=== PATIENT | female | born 1990 | race Caucasian/White ===

== ENCOUNTER 2016-11-11 17:04 | Emergency (ER) | payer OTHER ==
[~2016-11-11] VITALS: Ht 170.2 cm; Wt 90.7 kg
[2016-11-11] MEDS ORDERED: TRAMADOL 50 MG50 MG PO (18:08)
[2016-11-11] MEDS ORDERED: NAPROSYN500 MG PO (18:08)
[2016-11-11 18:58] VITALS: BP 120/88
== END 2016-11-11 19:56 | disposition home or self-care (01) ==
LOC: ER 17:04
DX: S92.002A Unspecified fracture of left calcaneus, initial encounter for closed fracture (principal); Z98.890 Other specified postprocedural states; Z88.8 Allergy status to other drugs, medicaments and biological substances; W18.31XA Fall on same level due to stepping on an object, initial encounter; Y93.89 Activity, other specified; Y92.89 Other specified places as the place of occurrence of the external cause; Y99.8 Other external cause status

== ENCOUNTER 2016-11-18 22:59 | Inpatient (IN) | payer OTHER ==
[~2016-11-18] VITALS: Ht 170.2 cm; Wt 127.0 kg
--- NOTE | ~2016-11-18 | S ---
[facility] [place] [address] SURGICAL PATH RPT PROCEDURE Name: KIRA FONTANA Desirae Room #: 442-P ADM IN M.R.#: [id number] Admission: 11/19/16 Date of : 88 Discharge: Report #: [id number] Path Case #: [id number] PATHOLOGY REPORT COLLECTION DATE: 11/19/2016 RECEIVED DATE: 11/20/2016 SUBMITTING PHYS: Dr. Juan Uribe OTHER PHYS: Dr. Ivan Casey SPECIMEN(S) RECEIVED: A.Appendix * * * * * * * * * * * * FINAL DIAGNOSIS: Appendix, "appendix", appendectomy: - Acute suppurative appendicitis with acute inflammation extending into the periappendiceal fat with microabscess formation. (SHA:csd; d/t: 11/22/2016) PATHOLOGIST: Maximo Woodruff M.D. REPORT ELECTRONICALLY SIGNED BY: Maximo Woodruff M.D. DATE/TIME: 11/22/2016 12:24 * * * * * * * * * * * * GROSS PATHOLOGY: Received in formalin labeled "Kira Fontana, appendix," is an appendix measuring 6.1 cm in length and 1.1 cm in diameter with a moderate amount of attached mesoappendix. The serosal surface is dusky multani-teran brown in appearance. Sectioning reveals a patent lumen filled with blood coagulum admixed with fecal material. The specimen is submitted representatively as follows: A1 proximal margin, distalmost bisected tip and section just proximal to bisected tip A2 additional cross sections of appendix. (CAA; 11/21/2016) CLINICAL HISTORY: Appendicitis INITIAL CPT CODE(S): A; 09507 [facility] [address], [place] [address] [facility] [address] [place] [address] SURGICAL PATH RPT PROCEDURE Name: KIRA FONTANA Room #: 442-P ADM IN M.R.#: [id number] Admission: 11/19/16 Date of : 88 Discharge: Report #: [id number] Path Case #: [id number] Technical [facility] performed by [facility] at [address] [place] [address], [facility] [address] [address]. [facility] [address] [place] [address] PHONE: [phone] DIRECTOR: Elbert Harper M.D. * * * END OF REPORT * * *
--- NOTE | ~2016-11-18 | HC ---
[facility] [place] [address] CONSULTATION Name: ADDIKIERRA Room #: 442-P ADM IN M.R.#: [id number] Admission: 11/19/16 Attend Phys: Zane Schulz Discharge: Date of : 88 Report #: [id number] THIS REPORT FOR: //name// CC: [facility] physician/PCP Jacinto Uribe DATE OF SERVICE: 11/19/2016 REFERRING PROVIDER: Jacinto Love MD REASON FOR CONSULT: Abdominal pain. HISTORY OF PRESENT ILLNESS: The patient is a 26-year-old morbidly obese female who presented complaining of right lower quadrant abdominal pain of 24 hours duration. The patient rates the pain as 10/10 and at first she thought it was heartburn that started in the right upper quadrant, but now it has migrated to the right lower quadrant and she has received no relief whatsoever. Workup in the emergency room was undertaken with laboratories and a CT scan of the abdomen and pelvis. The patient's labs showed a marked leukocytosis with a white blood cell count of 16.7 thousand with a bandemia of 20% and her CT scan of the abdomen and pelvis showed a distended appendix with adjacent inflammatory stranding and a small appendicolith, but no gross evidence of perforation. As such, I am being asked to evaluate for definitive surgical management in the form of an appendectomy. PAST MEDICAL HISTORY: Morbid obesity. PAST SURGICAL HISTORY: C-sections times 8. HOME MEDICATIONS: Naproxen and Tramadol. ALLERGIES: NYQUIL and DOXYLAMINE. FAMILY HISTORY: Reviewed and noncontributory. SOCIAL HISTORY: The patient lives with her spouse, no utilization of tobacco, alcohol or illicit drugs. REVIEW OF SYSTEMS: GENERAL: The patient denies nocturnal fevers or chills. HEENT: No change in vision, change in hearing. NECK: No swelling or difficulty swallowing. HEART: No chest pain or palpitations. LUNGS: No cough or shortness of breath. ABDOMEN: Abdominal pain, nausea and vomiting. [facility] [address] [place] [address] CONSULTATION Name: KIERRA FONTANA Room #: 442-P [facility] IN ..#: [id number] Admission: 11/19/16 Attend Phys: Zane Schulz Discharge: Date of : 88 Report #: [id number] GENITOURINARY: No dysuria or hematuria. ENDOCRINE: No polyuria, polydipsia. HEMATOLOGIC: No history of bleeding or easy bruising. EXTREMITIES: No history of weakness or limited range of motion. NEUROLOGIC: No history of syncope or near syncopal episodes. SKIN AND INTEGUMENT: No history of abnormal lesions or moles. PSYCHIATRIC: No history of anxiety or depression. PHYSICAL EXAMINATION: VITAL SIGNS: Temperature 36.7, pulse 101, respirations 18, blood pressure 127/95. Her BMI is 41.7. GENERAL: Alert, in mild distress. HEENT: Normocephalic, atraumatic. Pupils equal, round, reactive to light. NECK: Supple, without lymphadenopathy. Trachea midline. HEART: Tachycardic, but regular rhythm. LUNGS: Clear to auscultation bilaterally. ABDOMEN: Obese, soft, nondistended. She is tender mainly in the right lower quadrant with mild guarding, but no rebound. She has positive psoas and positive Rovsing's signs. GENITOURINARY: Normal external female genitalia. EXTREMITIES: No clubbing, cyanosis or edema. NEUROLOGIC: Cranial nerves 2-12 are grossly intact. PSYCHIATRIC: Normal mood and affect. SKIN AND INTEGUMENT: No abnormal lesions or moles. LABORATORY AND X-RAY DATA: CBC shows white blood cell count 16.7 thousand, hemoglobin 14.2, platelets 314,000. She has 20% bands. Creatinine is slightly elevated at 1.5. CT scan of the abdomen and pelvis showed a dilated appendix with periappendiceal stranding concerning for acute appendicitis. Lactic acid 1.8. Urine is negative. Urinalysis negative. ASSESSMENT AND PLAN: A 26-year-old morbidly obese female with what appears to be an acute appendicitis. The patient has been kept n.p.o., given appropriate IV antibiotics and IV fluid resuscitation for her acute kidney injury and we will proceed to the operating room at the first opportunity for a laparoscopic possible open appendectomy. Risks, benefits and alternatives of that procedure have been discussed with the patient in detail and she agrees to proceed as outlined. I sincerely appreciate this consult. I will follow closely and leave any further recommendations in the patient's chart as appropriate. <ELECTRONICALLY SIGNED> By: Juan Uribe MD, FACS 11/21/16 1700 1306 27 Juan Uribe MD, FACS /nt
--- NOTE | ~2016-11-18 | H ---
[facility] [place] [address] HISTORY AND PHYSICAL Name: SÁNCHEZ FONTANALEIDY Merrill Room #: 442-P [facility] IN M.R.#: [id number] Admission: 11/19/16 Attend Phys: Zane Schulz Discharge: 11/22/16 Date of : 88 Report #: [id number] THIS REPORT FOR: //name// CC: [facility] physician/PCP Jacinto Uribe ATTENDING PHYSICIAN: Dr. Love. PRIMARY CARE PHYSICIAN: None. CHIEF COMPLAINT: Right-sided abdominal pain. HISTORY OF PRESENT ILLNESS: The patient is a 26-year-old obese female who presented to the ER complaining of right-sided abdominal pain that started yesterday morning. The pain was sharp and constant. She rated her pain 10/10. Her pain did start in her right upper quadrant, but she feels her pain radiating down to her right lower quadrant. The pain significantly got worse around 1630 yesterday evening and she tried some heartburn medication, which did not help at all. She did have a normal bowel movement yesterday. She denies any associated nausea or vomiting. She denies any fevers or chills. In the ER, she was felt to have appendicitis and has been admitted for further evaluation. She currently rates her pain 7/10 and is again requesting further pain medication. PAST MEDICAL HISTORY: None. PAST SURGICAL HISTORY: . ALLERGIES: NYQUIL and DOXYLAMINE. HOME MEDICATIONS: The patient has recently been started on naproxen as well as tramadol for a recent cracked foot and sprained ankle. Normally, she does not take any prescription meds. SOCIAL HISTORY: The patient lives with her spouse. She denies any history of tobacco or alcohol use. FAMILY HISTORY: Noncontributory to this illness. REVIEW OF SYSTEMS: The patient has recently experienced left cracked foot and right ankle sprain and was seen in our ER for this. She is supposed to be using crutches, but she has not been. All other 12-point review of systems was reviewed with the patient, otherwise negative unless stated in the HPI. PHYSICAL EXAMINATION: GENERAL: The patient is an alert, obese female in no acute distress. VITAL SIGNS: Temperature is 36.7, heart rate 101, respirations 18, blood [address] [address] HISTORY AND PHYSICAL Name: KIERRA FONTANA Room #: 442-[facility] IN ..#: [id number] Admission: 11/19/16 Attend Phys: Zane Schulz Discharge: 11/22/16 Date of : 88 Report #: [id number] pressure is 127/95, oxygen 99% on room air. HEENT: PERRLA. Sclerae is nonicteric. Oral mucosa is pink and moist. NECK: Supple, no JVD noted. CARDIAC: Normal S1, S2. No murmurs, rubs or gallops. She is tachycardic. RESPIRATORY: Breath sounds are clear bilaterally. No wheezing or rhonchi. Breathing is nonlabored. ABDOMEN: Soft, round, and tender throughout, but worse in the right upper and lower quadrants. Bowel sounds are hypoactive. VASCULAR: No edema noted. Pedal pulses are 2+. NEUROLOGIC: The patient is alert and oriented times 3. Speech is clear. She is moving all extremities equally. No focal neuro deficits noted. PSYCHIATRIC: The patient is calm and cooperative. LABORATORY DATA AND DIAGNOSTICS: WBC is 16.7, hemoglobin 14.2 with bands of 20% and platelets are 314. UA showed negative for leukocyte esterase and wbc's. CT of the abdomen and pelvis shows acute appendicitis and fatty infiltration of the liver and the gallbladder is contracted and packed with calculi. ASSESSMENT AND PLAN: 1. Sepsis due to Acute appendicitis. The patient does have associated leukocytosis and tachycardia and does meet sepsis parameters. We will continue with IV fluids and Zosyn and follow labs. Surgery is consulted. We will keep her n.p.o., continue with pain control and antiemetics. 2. Acute kidney injury. Baseline creatinine is unknown, but she denies any prior history of kidney problems. We will continue with hydration and follow labs. 3. Cholelithiasis. We will have Surgery evaluate this when evaluating her for appendicitis. 4. Deep venous thrombosis prophylaxis, place sequential compression devices. We will continue to follow the patient closely throughout the hospitalization and make changes based on clinical status. <ELECTRONICALLY SIGNED> By: NENA Storm 11/23/16 0729 0819 1145 NENA Storm /nt
--- NOTE | ~2016-11-18 | O ---
[facility] [place] [address] OPERATIVE REPORT Name: ADDIKIERRA J Room #: 442-P ADM IN M.R.#: [id number] Admission: 11/19/16 Attend Phys: Jacinto Love MD Discharge: Date of : 88 Report #: [id number] THIS REPORT FOR: //name// CC: [facility] physician/PCP Jacinto Uribe DATE OF SERVICE: 11/19/2016 PREOPERATIVE DIAGNOSIS: Acute appendicitis. POSTOPERATIVE DIAGNOSIS: Acute perforated appendicitis. PROCEDURE PERFORMED: Laparoscopic appendectomy with intra-abdominal drain placement. SURGEON: Juan Uribe M.D. ECD: None. ANESTHESIA: General endotracheal anesthesia. ESTIMATED BLOOD LOSS: Minimal (less than 10 mL). COMPLICATIONS: None appreciated. SPECIMENS: None. INDICATIONS: The patient is a 26-year-old morbidly obese female who presented with a 24-hour history of right lower quadrant abdominal pain, nausea and vomiting. The patient's workup showed a leukocytosis with a dilated, inflamed appendix with periappendiceal stranding, concerning for acute appendicitis. No evidence of perforation was seen on CT scan, however, but no IV or oral contrast was utilized. Nonetheless, with the clinical symptoms, coupled with the CT findings, indication was for laparoscopic appendectomy today. Intraoperative findings of gross purulence widespread throughout the mid abdomen and pelvis were seen with obvious perforation approximately 2 cm from the base of the appendix, with fecal contamination intra-abdominally. DESCRIPTION OF PROCEDURE: After explaining the risks, benefits and alternatives of the procedure with the patient in detail in the preoperative holding area and obtaining written consent, the patient was brought to the operating room and placed supine on the operating room table. After conducting a thorough timeout procedure, verifying correct patient and procedure, the patient was given general endotracheal anesthesia. Once adequate anesthesia was obtained, her SCDs were hooked up to the pneumatic compression device. She was already on an [facility] [address] [place] [address] OPERATIVE REPORT Name: ADDIKIERRA Room #: 442-P [facility] IN [facility]#: [id number] Admission: 11/19/16 Attend Phys: Jacinto Love MD Discharge: Date of : 88 Report #: [id number] inpatient regimen of IV antibiotic therapy, which is all in line with the SCIP protocol. The patient's abdomen was now prepped and draped in the standard surgical sterile fashion. A 5 mL of 0.5% Marcaine with epinephrine were used to anesthetize the skin in the infraumbilical location. A #15 bladed scalpel was used to create a 1-cm transverse skin incision at this location. A 12-mm Visiport was placed over 0-degree 5-mm laparoscope and was introduced through this incision site. Once intra-abdominal placement was verified visually, the obturator for the trocar and laparoscope were both removed and the abdomen was insufflated to 15 mmHg using carbon dioxide gas. I now proceeded to place two 5-mm working trocars in the lower abdomen. The first was placed in the suprapubic location and second in the left lower quadrant. Both additional 5-mm ports were placed under direct vision. After anesthetizing the skin at each location with 5 mL of 0.5% Marcaine with epinephrine, I had created small skin nicks using #15 bladed scalpel. Evaluation of the lower abdomen now showed gross purulence widespread throughout the mid to lower abdomen. A suction route cdl driver device was used to suction out all gross purulence encountered at this juncture. Special attention was taken in the posterior cul-de-sac low in the pelvis. I now proceeded to place the patient in Trendelenburg position with the right side elevated and was able to easily identify the inflamed appendix with a hole approximately 2 cm distal to its takeoff from the cecum. The base of the appendix appeared healthy, uninflamed and un-indurated. I now proceeded to make a window in the mesoappendix near the base using a [place] dissector. Laparoscope was removed, changed to left lower quadrant trocar and the Rentz 45-mm stapler with a blue load was passed through the 12-mm trocar and one blade of the stapler was passed through the window in the mesoappendix. It was clamped and fired, stapling the appendix at its healthy base. The stapler was removed and the Harmonic scalpel was used to transect the mesoappendix for hemostasis. The EndoCatch bag was placed in the infraumbilical trocar and the specimen was placed within it under direct vision. The pursestring suture was drawn and specimen was removed from the abdomen under direct vision. I now placed the infraumbilical fascial closing suture using 0 PDS suture on a Josh-Jalil needle under direct vision. This was not tied down at this juncture, but was tagged with a hemostat and the trocar was replaced under direct vision. Laparoscope was placed back to the infraumbilical trocar and the staple line was evaluated. There was complete hemostasis, with no bleeding whatsoever. I proceeded to suction out all remaining fluid found. I then irrigated the abdomen with 3 liters of normal saline focusing in the mid to lower abdomen as well as evaluating the right upper and right lower quadrants, which showed no fluid collections in those regions. I then suctioned the irrigant out, which went clear at the end of the procedure. I then elected to put a 19-Kinyarwanda round Kevin-Peña drain in the lower pelvis. This was placed in the abdomen through the left lower quadrant trocar and was brought out through the suprapubic trocar site. This was secured to the skin using 2-0 Nylon in standard fashion. This was placed low in the cul-de-sac to run up the right pericolic gutter. One final evaluation of the intra-abdominal domain showed no further evidence of gross purulence and the staple line was seated [address] [address] OPERATIVE REPORT Name: KIERRA FONTANA Room #: 442-P ADM IN M.R.#: [id number] Admission: 11/19/16 Attend Phys: Jacinto Love MD Discharge: Date of : 88 Report #: [id number] nicely at the base of the appendix on the cecum. There was no bleeding evident. The laparoscope was placed back in the left lower quadrant trocar and the insufflation pressure was reduced to 5 mmHg. I then removed the infraumbilical trocar and tied down the 0 PDS suture under direct vision to ensure I did not catch a loop of bowel or omentum. The remaining trocar was removed under direct vision and the abdomen was fully desufflated. A 4-0 Monocryl was used in a standard subcuticular fashion for all skin incisions and Dermabond glue was applied to all skin wounds. At the end of the procedure, all instrument, needle and sponge counts were correct. The patient tolerated the procedure without incident, was awakened in the operating room and transitioned to the recovery room in stable condition with no apparent complications. <ELECTRONICALLY SIGNED> By: Juan Uribe MD, FACS 11/20/16 1540 1312 1529 Juan Uribe MD, FACS /nt
[~2016-11-18 22:59] MED LIST: NAPROSYN500 MG PO; TRAMADOL 50 MG50 MG PO
[2016-11-18 23:01] VITALS: BP 127/95
[2016-11-18 23:14] LABS: URINE BILIRUBIN NEGATIVE (Negative); URINE BLOOD NEGATIVE (Negative); URINE COLOR YELLOW; URINE GLUCOSE-RANDOM* NEGATIVE (Negative); URINE KETONES NEGATIVE (Negative); URINE NITRITE NEGATIVE (Negative); URINE PROTEIN (DIPSTICK) NEGATIVE (Negative); URINE SPECIFIC GRAVITY 1.025 (1.003-1.035)
[2016-11-19] VITALS (9 sets, daily range): BP systolic 90–108; BP diastolic 52–70
[2016-11-19 01:56] LABS: HEMATOCRIT 41.8 % (37.0-47.0); HEMOGLOBIN 14.2 gm/dL (12.0-15.0); MCH 29.2 pg (26.0-34.0); MCHC 33.9 g/dL (28.0-37.0); MCV 86.1 fL (80.0-100.0); PLATELET COUNT 314 thou/uL (150-400); RBC 4.86 mil/uL (4.20-5.00); RDW 17.5 % (10.5-14.5); WBC 16.7 thou/uL (4.0-11.0)
[2016-11-19 02:01] LABS: MANUAL DIFF YES
[2016-11-19 02:03] LABS: CALCIUM 8.9 mg/dL (8.5-10.1); CREATININE 1.5 mg/dL (0.6-1.0)
[2016-11-19 02:07] LABS: ALBUMIN 4.7 g/dL (3.4-5.0); TOTAL BILIRUBIN 0.8 mg/dL (<0.1-1.0); TOTAL PROTEIN 8.6 g/dL (6.4-8.2)
[2016-11-19 03:02] LABS: ABSOLUTE NEUTROPHILS 15.4 thou/uL (1.4-8.2); ANISOCYTOSIS 1+; TOTAL CELL COUNT 100
[2016-11-20 03:10] VITALS: BP 107/70
[2016-11-20 05:33] LABS: HEMATOCRIT 33.1 % (37.0-47.0); MCH 29.7 pg (26.0-34.0); MCHC 34.5 g/dL (28.0-37.0); MCV 86.1 fL (80.0-100.0); RBC 3.84 mil/uL (4.20-5.00); RDW 17.9 % (10.5-14.5); WBC 19.4 thou/uL (4.0-11.0)
[2016-11-20 05:47] LABS: HEMOGLOBIN 11.4 gm/dL (12.0-15.0)
[2016-11-20 05:48] LABS: CALCIUM 7.8 mg/dL (8.5-10.1); CREATININE 1.4 mg/dL (0.6-1.0); POTASSIUM 4.3 mmol/L (3.5-5.1)
[2016-11-20 08:00] VITALS: BP 117/75
[2016-11-20 16:00] VITALS: BP 113/75
[2016-11-20 19:40] VITALS: BP 89/52
[2016-11-21 03:09] LABS: GLYCOHEMOGLOBIN (HGB A1C) 4.9 % (4.8-5.6)
[2016-11-21 04:28] VITALS: BP 130/74
[2016-11-21 06:11] LABS: HEMATOCRIT 30.1 % (37.0-47.0); MCH 29.1 pg (26.0-34.0); MCHC 33.3 g/dL (28.0-37.0); MCV 87.3 fL (80.0-100.0); RBC 3.45 mil/uL (4.20-5.00); RDW 18.2 % (10.5-14.5); WBC 14.7 thou/uL (4.0-11.0)
[2016-11-21 06:24] LABS: ALBUMIN 2.9 g/dL (3.4-5.0); CALCIUM 8.2 mg/dL (8.5-10.1); CREATININE 1.3 mg/dL (0.6-1.0); PHOSPHORUS 2.5 mg/dL (2.5-4.9); POTASSIUM 4.1 mmol/L (3.5-5.1)
[2016-11-21 06:29] LABS: CHOLESTEROL 150 mg/dL (<200); HDL CHOLESTEROL 24 mg/dL (>40); LDL CHOLESTEROL 103 mg/dL (<100); TC:HDL 6.3 Ratio (Not establshd); TRIGLYCERIDE 118 mg/dL (<150); VLDL 24 mg/dL (<40)
[2016-11-21 08:00] VITALS: BP 98/58
[2016-11-21 16:15] VITALS: BP 112/69
[2016-11-21 19:35] VITALS: BP 120/73
[2016-11-22 04:00] VITALS: BP 116/78
[2016-11-22 05:40] LABS: HEMATOCRIT 30.7 % (37.0-47.0); HEMOGLOBIN 10.4 gm/dL (12.0-15.0); MCH 29.4 pg (26.0-34.0); MCHC 33.8 g/dL (28.0-37.0); MCV 86.8 fL (80.0-100.0); RBC 3.54 mil/uL (4.20-5.00); RDW 18.2 % (10.5-14.5); WBC 12.3 thou/uL (4.0-11.0)
[2016-11-22 08:26] VITALS: BP 124/83
[2016-11-22] MEDS ORDERED: GLUCOPHAGE1000 MG PO (10:40)
[2016-11-22] MEDS ORDERED: TRAMADOL 50 MG50 MG PO (10:40)
[2016-11-22] MEDS ORDERED: AUGMENTIN 875875 MG PO (10:40)
[2016-11-22] MEDS ORDERED: LEVOTHYROXIN0.175 MG PO (10:40)
[2016-11-22] MEDS ORDERED: SENOKOT-S1 TA1 PO (10:41)
[2016-11-22] MEDS ORDERED: ACETAMINOPHEN-1 EAC1 PO (10:41)
[2016-11-22 12:57] VITALS: BP 124/83
== END 2016-11-22 15:09 | disposition home or self-care (01) | DRG 853 ==
LOC: ER 22:59 → 4S 11-19 03:49 → EROBS 11-19 03:49 → 4S 11-19 04:22
PROVIDERS: Emergency Medicine; Hospitalist; Physician Assistant; Surgery
PROC: 0DTJ4ZZ Resection of Appendix, Percutaneous Endoscopic Approach (ICD-10-PCS; principal; 2016-11-19)
PROC: 0W9F40Z Drainage of Abdominal Wall with Drainage Device, Percutaneous Endoscopic Approach (ICD-10-PCS; principal; 2016-11-19)
DX: A41.9 Sepsis, unspecified organism (principal); N17.0 Acute kidney failure with tubular necrosis; K35.2 Acute appendicitis with generalized peritonitis; Z68.41 Body mass index [BMI] 40.0-44.9, adult; E86.0 Dehydration; N93.8 Other specified abnormal uterine and vaginal bleeding; E66.01 Morbid (severe) obesity due to excess calories; D64.9 Anemia, unspecified; E03.9 Hypothyroidism, unspecified; R73.9 Hyperglycemia, unspecified; K76.0 Fatty (change of) liver, not elsewhere classified; K80.20 Calculus of gallbladder without cholecystitis without obstruction; Z88.8 Allergy status to other drugs, medicaments and biological substances; Z90.49 Acquired absence of other specified parts of digestive tract; Z83.49 Family history of other endocrine, nutritional and metabolic diseases
CPT/HCPCS: 10100; 50010; 50101; 50249; 50411; 50555; 50558; 50739; 50740; 50962; 51489; 51975; 52265; 53307; 54022; 54118; 56525; 56526; 62110; 62900; 70005